=== PATIENT | female | born 1945 | race Caucasian/White ===

== ENCOUNTER 2019-10-05 16:52 | Outpatient (CLI) | payer OTHER | END 2019-10-05 17:13 | disposition home or self-care (01) | LOC: LAB 16:52 → RAD 16:52 | DX: R68.84 Jaw pain (principal) ==

== ENCOUNTER 2020-07-11 13:13 | Outpatient (CLI) | payer OTHER | END 2020-07-11 13:20 | disposition home or self-care (01) | LOC: EDBD 13:13 → RAD 13:13 | PROVIDERS: ATTEND Specialist | DX: N64.59 Other signs and symptoms in breast (principal); J44.9 Chronic obstructive pulmonary disease, unspecified; M25.561 Pain in right knee; M25.562 Pain in left knee; Z12.31 Encounter for screening mammogram for malignant neoplasm of breast ==